=== PATIENT | male | born 2000 | race African-American/Black ===

== ENCOUNTER 2020-11-04 17:57 | Emergency (ER) | payer SELFPAY ==
[~2020-11-04] VITALS: Ht 172.7 cm; Wt 75.0 kg
[2020-11-04 18:04] VITALS: BP 153/89
== END 2020-11-04 22:13 | disposition home or self-care (01) ==
LOC: ER 18:05
DX: U07.1 COVID-19 (principal); R43.0 Anosmia
CPT/HCPCS: 99281; C9803; U0003; U0005